=== PATIENT | female | born 1975 | race Caucasian/White ===

== ENCOUNTER → 2018-05-20 | Outpatient (CLI) | payer BC ==
--- NOTE | 2018-05-20 12:16 | CONS ---
CONSULTATION DATE OF SERVICE: 05/20/2018 A 43-year-old lady who has been evaluated in the [facility] for significant excessive daytime sleepiness. HISTORY OF PRESENT ILLNESS/SLEEP WAKE EVALUATION: Patient referred increasing symptoms of sleepiness for the last year. Her sleep schedule on weekdays from 10 p.m. until 5:30 a.m., on weekends from around 10 p.m. until 7 a.m. Sometimes she wakes up earlier and cannot fall asleep again. Usually the beginning of the night, she falls asleep well, although she has TV set in bedroom. She sleeps with her with occasional snoring and awakenings from sleep with dry mouth, panic attack, sweating, sleep talking and nocturia. Usually she wakes up around 2 times per night with 1 episode of nocturia. She is trying not to take any naps during the day because she referred that it is difficult to wake up from nap and she does not feel better if she is taking naps. Girard Sleepiness Scale increased to 12. PAST MEDICAL HISTORY: Positive for celiac disease, bleeding from uterus with low level of iron after that. Presently patient has a low level of iron, calcium and vitamin D. Pancreatic cyst under monitoring. PAST SURGICAL HISTORY: Uterus ablation 2007, tubal ligation, cholecystectomy, ERCP for sphincter of Oddi problems. MEDICATIONS: Calcium, iron and vitamin D. SOCIAL HISTORY: Negative for smoking. Alcohol consumption occasional. FAMILY HISTORY: Hypertension, hyperlipidemia, snoring, headaches, cancer, anemia. REVIEW OF SYSTEMS: Awakenings from sleep, tiredness and sleepiness during the day. PHYSICAL EXAM: lady without distress, BP 130/83, HR 82, RR 14, height 5, 4, weight 148.6, body mass index 25.4, temperature 98.2, oxygen saturation at room 100%. OROPHARYNX: Low position of soft palate, Mallampati 4, restriction of nasal breathing,. small nasal passages and nostrils. HEART: Very soft systolic murmur. Neck Supple, no JVD. Thyroid is not palpable. LUNGS Clear to percussion and to auscultation. Good air exchange. No wheezing or rhonchi. ABDOMEN Soft and nontender. Bowel sounds are present. No organomegaly appreciated. EXTREMITIES No clubbing or cyanosis. BRUSHER HAND Awake, alert, and oriented X3. Cranial nerves 2 to 7 intact. There is no fasciculation or atrophy. noted. No focal deficits observed. IMPRESSION: 1. Possible obstructive sleep apnea-hypopnea syndrome. 2. Patient presents with symptoms of excessive daytime sleepiness. Girard Sleepiness Scale is 12. 3. Positive history of possible hypnagogical hallucinations. Differential diagnosis should include hypersomnia and narcolepsy. 4. Celiac disease. 5. History of iron deficiency. 6. Differential diagnosis also should include periodic limb movements. 7. History of low level of calcium. 8. History of level of vitamin D. 9. Status post tubal ligation. 10.Status post uterus ablation. 11.Status post ERCP. 12.History of pancreatic cyst, they are monitoring in [facility]. PLAN: 1. Home sleep apnea test. 2. If home sleep apnea test will be negative for abnormalities of respiration, polysomnogram with the following multiple sleep latency test for objective evaluation of patient's symptoms of excessive daytime sleepiness and also to check for possible periodic limb movements. 3. Sleep hygiene with regular time in bed for at least 8 hours. 4. No driving if feeling sleepiness. Thank you very much for referring this patient for consultation. Sincerely, Harman Monsalve MD, PhD, FAASM Diplomat of [place] [employer] [place] [employer] [facility] MMODL / IJN: [id number] /
== END | disposition home or self-care (01) ==
LOC: SLEEP 10:24
PROVIDERS: ATTEND Internal Medicine
DX: G47.10 Hypersomnia, unspecified (principal); K90.0 Celiac disease; Z86.39 Personal history of other endocrine, nutritional and metabolic disease; Z87.19 Personal history of other diseases of the digestive system; Z90.49 Acquired absence of other specified parts of digestive tract; Z98.51 Tubal ligation status; Z98.890 Other specified postprocedural states
CPT/HCPCS: 99211

== ENCOUNTER → 2018-09-27 | Outpatient (CLI) | payer BC ==
--- NOTE | 2018-09-28 11:41 | MM ---
Reason for exam: additional evaluation requested from prior study. Physical Findings: Nurse did not find any significant physical abnormalities on exam. MG 3D Diag Mammo W/Cad LETHA Bilateral CC and MLO view(s) were taken. Prior study comparison: April 21, 2016, mammogram. The breast tissue is heterogeneously dense. This may lower the sensitivity of mammography. There is no discrete abnormality left subareolar. Focal asymmetry upper right MLO view, changing from prior. Reported by patient: positive thermogram upper right MLO and left periareolar. This finding is changed when compared with previous exams. These results were verbally communicated with the patient and result sheet given to the patient on 09/27/18. ASSESSMENT: Incomplete: need additional imaging evaluation, BI-RAD 0 RECOMMENDATION: Ultrasound of both breasts.
--- NOTE | 2018-09-28 11:46 | USB ---
Reason for exam: additional evaluation requested from abnormal screening. US Breast Limited BILAT Right complete breast ultrasound includes all four quadrants, the retroareolar region and axilla. Finding demonstrates a 0.6 x 0.3 x 0.2cm oval, complex cystic lesion at 8 o'clock, a 0.4 x 0.3 x 0.3cm oval, cystic lesion at 8 o'clock, a 1.0 x 0.6 x 0.3cm oval, cystic complex lesion at 9 o'clock irregular live, interval echoes for which a biopsy is recommended and a 0.4 x 0.4 x 0.4cm oval, cystic cluster at the posterior nipple. Left limited breast ultrasound including focal area of concern, retroareolar and axilla demonstrates no cystic or solid lesion seen. Non biopsied areas should have follow up ultrasound in 6 months. These results were verbally communicated with the patient and result sheet given to the patient on 09/27/18. ASSESSMENT: Suspicious, BI-RAD 4 RECOMMENDATION: Ultrasound core biopsy of the right breast. (9 o'clock right breast) Called Dr. Childers with mammographic findings and has scheduled an appointment for the patient for 10/18/18 at 9:[address] Sears. Biopsy scheduled for 10/11/18 at 12:20. PRELIMINARY REPORT CALLED AND FAXED TO DR. SEARS ON 09/28/18.
== END ==
LOC: RADMAMWWP 06:45
PROVIDERS: ATTEND Obstetrics & Gynecology
DX: R92.8 Other abnormal and inconclusive findings on diagnostic imaging of breast (principal)
CPT/HCPCS: 77062; 77066

== ENCOUNTER → 2018-10-11 | Day surgery (SDC) | payer BC ==
[~2018-10-11] MED LIST: ALPRAZolam 0.5 MG TAB PO ONE
[2018-10-11 13:25] VITALS: RESP 16; BMI 25.7
[2018-10-11 15:10] VITALS: BP 108/71; PULSE 60; TEMP 98
--- NOTE | 2018-10-11 15:57 | USB ---
EXAMINATION TYPE: US breast aspiration single RT DATE OF EXAM: 10/11/2018 COMPARISON: Ultrasound dated 09/27/2018 CLINICAL HISTORY: R92.8 ABN MAMMO. PROCEDURE: The procedure of ultrasound guided core biopsy was explained to the patient. Benefits, alternatives, and risks were discussed. An informed consent was then obtained. Preprocedural timeout was performed. Preprocedural scanning demonstrates possible continuity with an adjacent vein. Therefore this could represent superficial thrombophlebitis however this was not definitely connected to the vein and therefore aspiration performed. The patient was placed in supine positioning for imaging and for the procedure. The overlying skin was prepped and draped in usual sterile fashion. 10 cc of 1% lidocaine was used as anesthetic into the skin and subcutaneous tissue the elongated mass at the 9:00 position within the right breast measuring up to 9 mm. Under ultrasound guidance, an 18-gauge spinal needle was used to perform fine- needle aspiration. Following this, a ribbon-shaped biopsy marker was left at the site of collapse of the aspirated cystic mass. The patient tolerated the procedure well without any immediate complication. The patient was kept in the radiology department for short stay after the procedure and then discharged home in stable condition. Postprocedure mammogram demonstrates appropriate biopsy marker placement. IMPRESSION: Successful, uncomplicated ultrasound guided aspiration of a 9:00 elongated hypoechoic mass. This questionably could represent a hemorrhagic/inflammatory cyst or sequela of thrombophlebitis, full pathology results to follow. Assess for cystic remnant on fine-needle aspiration pathology report. Pathology Results: Benign RIGHT BREAST, 9:00, ASPIRATE: Scattered clusters of bland apocrine lining cells consistent with a benign apocrine cyst. Limited sample. Recommendation Follow up ultrasound of the right breast in 6 months. MTDD
--- NOTE | 2018-10-12 08:38 | MM ---
Reason for exam: additional evaluation requested from abnormal screening. Last mammogram was performed less than 1 month ago. MG Diagnostic Mammo RT Wo CAD CC and MLO view(s) were taken of the right breast. Prior study comparison: September 27, 2018, bilateral MG 3d diag mammo w/cad LETHA. April 21, 2016, mammogram. ASSESSMENT: Post procedure mammogram for marker placement RECOMMENDATION: Ultrasound of the right breast in 6 months. PENDING PATHOLOGY RESULTS.
== END ==
LOC: RADUSWWP 13:05
PROVIDERS: ATTEND Student in an Organized Health Care Education/Training Program
DX: N60.01 Solitary cyst of right breast (principal); R92.8 Other abnormal and inconclusive findings on diagnostic imaging of breast
CPT/HCPCS: 88305; 77065; 76942; 19000; A4648; J2001

== ENCOUNTER → 2021-05-08 | Outpatient (CLI) | payer BC ==
--- NOTE | 2021-05-08 08:48 | BD ---
EXAMINATION TYPE: Axial Bone Density DATE OF EXAM: 05/08/2021 COMPARISON: NONE CLINICAL HISTORY: Height: 64 Weight: 157.5 FRAX RISK QUESTIONS: Alcohol (3 or more units per day): no Family History (Parent hip fracture): no Glucocorticoids (More than 3mos): no (Ex: prednisone, prednisolone, methylprednisolone, dexamethasone, and hydrocortisone). History of Fracture in Adulthood: yes Secondary Osteoporosis: 1. Type 1 Diabetes: no 2. Hyperthyroidism: no 3. Menopause before 45: yes 4. Malnutrition: yes 5. Chronic liver disease: no Rheumatoid Arthritis: no Current Tobacco Use: no RISK FACTORS HISTORY OF: Surgery to Spine/Hip(right/left)/Wrist (right/left): no Family History of Osteoporosis: yes Active: yes Diet low in dairy products/other sources of calcium: yes Postmenopausal woman: yes Lost more than 2 inches in height since high school: no MEDICATIONS: none Additional History: EXAM MEASUREMENTS: Bone mineral densitometry was performed using the [employer] System. Bone mineral density as measured about the Lumbar spine is: ----- L1-L4(G/cm2): 1.014 T Score Values are as follows: ----- L2: -2.1 ----- L3: -0.8 ----- L4: -1.7 ----- L1-L4: -1.4 Bone mineral density : baseline Bone mineral density about the R hip (g/cm2): 0.959 Bone mineral density about the L hip (g/cm2): 0.909 T Score values are as follows: -----R Neck: -0.6 -----L Neck: -0.9 -----R Total: -0.6 -----L Total: -1.1 Bone mineral density : baseline IMPRESSION: Osteopenia NOTE: T-SCORE=SD OF THE YOUNG ADULT MEAN.
== END | disposition home or self-care (01) ==
LOC: RADBDWWP 07:19
PROVIDERS: ATTEND Obstetrics & Gynecology
DX: Z12.31 Encounter for screening mammogram for malignant neoplasm of breast (principal); M85.88 Other specified disorders of bone density and structure, other site
CPT/HCPCS: 77067; 77080

== ENCOUNTER → 2021-07-09 | Outpatient (CLI) | payer BC ==
[2021-07-09 10:27] LABS: Basophils % (A) 1 %; Eosinophils # (A) 0.4 k/uL (0-0.7); Eosinophils % (A) 6 %; Lymphocytes # (A) 1.3 k/uL (1.0-4.8); Lymphocytes % (A) 19 %; MCHC 33.5 g/dL (31.0-37.0); MCV 92.6 fL (80.0-100.0); Mean Platelet Volume 6.9; Monocytes # (A) 0.4 k/uL (0-1.0); Monocytes % (A) 6 %; Neutrophils # (A) 4.4 k/uL (1.3-7.7); Neutrophils % (A) 66 %; Platelet Count 231 k/uL (150-450); RBC 4.53 m/uL (3.80-5.40); RDW 11.8 % (11.5-15.5); WBC 6.7 k/uL (3.8-10.6)
[2021-07-09 10:41] LABS: ALT 23 U/L (4-34); AST 29 U/L (14-36); African American GFR (CKD) >90 (>60 ml/min/1.73 sqM); Albumin 4.1 g/dL (3.5-5.0); Alkaline Phosphatase 53 U/L (38-126); Anion Gap 5 mmol/L; Blood Urea Nitrogen 18 mg/dL (7-17); C Reactive Protein <0.5 mg/dL (<1.0); Calcium 9.3 mg/dL (8.4-10.2); Carbon Dioxide 27 mmol/L (22-30); Chloride 104 mmol/L (98-107); Glucose 85 mg/dL (74-99); Non-African American GFR(CKD) >90 (>60 ml/min/1.73 sqM); Potassium 4.3 mmol/L (3.5-5.1); Sodium 136 mmol/L (137-145); Total Bilirubin 0.6 mg/dL (0.2-1.3); Total Protein 7.1 g/dL (6.3-8.2)
[2021-07-09 14:56] LABS: Thyroid Peroxidase Antibodies 16.6 U/mL (0.0-33.0)
== END | disposition home or self-care (01) ==
LOC: LABT 09:05
PROVIDERS: ATTEND Physical Medicine & Rehabilitation
DX: K90.0 Celiac disease (principal); R19.7 Diarrhea, unspecified; M25.50 Pain in unspecified joint; E55.9 Vitamin D deficiency, unspecified; D51.3 Other dietary vitamin B12 deficiency anemia; D64.9 Anemia, unspecified; N95.8 Other specified menopausal and perimenopausal disorders
CPT/HCPCS: 80053; 82607; 82642; 82746; 83036; 83735; 84140; 84432; 84439; 84443; 84481; 85025; 86140; 86376

== ENCOUNTER → 2023-04-28 | Outpatient (CLI) | payer BC ==
--- NOTE | 2023-04-28 09:57 | MM ---
Reason for Exam: Clinical finding. Last mammogram was performed 2 year(s) and 0 month(s) ago. Patient History: Menarche at age 13. First Full-Term at age 22. Perimenopausal. 10/11/2018, Benign Cyst Aspiration on the right side. Maternal grandmother had breast cancer, age 50. Risk Values: Irene 5 year model risk: 0.8%. NCI Lifetime model risk: 8.3%. Prior Study Comparison: 09/27/2018 Bilateral Diagnostic Mammogram, [facility]. 09/27/2018 Bilateral Diagnostic Ultrasound, [facility]. 10/11/2018 Right Diagnostic Mammogram, [facility]. 05/08/2021 Bilateral Screening Mammogram, [facility]. Tissue Density: The breast tissue is heterogeneously dense. This may lower the sensitivity of mammography. Findings: Analyzed By CAD. Centrally located asymmetric density left CC view does not persist on spot compression. Asymmetric density far posterior lateral left CC view also disperses on XCCL view. No significant change from prior exams. Overall Assessment: Incomplete: need additional imaging evaluation, BI-RAD 0 Management: Diagnostic Breast Ultrasound of the left breast. Subareolar and periareolar for nipple discharge. Electronically signed and approved by: Oziel Steele M.D. Radiologist
--- NOTE | 2023-04-28 10:09 | USB ---
Reason for Exam: Clinical finding. Patient History: Menarche at age 13. First Full-Term at age 22. Perimenopausal. 10/11/2018, Benign Cyst Aspiration on the right side. Maternal grandmother had breast cancer, age 50. Risk Values: Irene 5 year model risk: 0.8%. NCI Lifetime model risk: 8.3%. Technique: Method: Targeted. Prior Study Comparison: 09/27/2018 Bilateral Diagnostic Mammogram, [facility]. 10/11/2018 Right Diagnostic Mammogram, [facility]. 05/08/2021 Bilateral Screening Mammogram, [facility]. Findings: The periareolar of the left breast, the axilla of the left breast and the retroareolar of the left breast were scanned. Targeted ultrasound subareolar and periareolar region as well as the axilla. Some minimal duct ectasia is noted. No solid or cystic mass or axillary adenopathy. Overall Assessment: Benign, BI-RAD 2 Management: Screening Mammogram of both breasts in 1 year. Further clinical management of patient's benign green/yellow nipple discharge. Suspicious discharge that would warrant further evaluation includes clear/bloody spontaneous discharge localized to a single pore on the nipple. A clinical breast exam by your physician is recommended on an annual basis and results should be correlated with mammographic findings. This exam should not preclude additional follow-up of suspicious palpable abnormalities. Results were given to the patient verbally at the time of exam. Electronically signed and approved by: Oziel Steele M.D. Radiologist
== END | disposition home or self-care (01) ==
LOC: RADMAMWWP 08:59
PROVIDERS: ATTEND Obstetrics & Gynecology
DX: N64.52 Nipple discharge (principal); R92.333 Mammographic heterogeneous density, bilateral breasts; Z80.3 Family history of malignant neoplasm of breast
CPT/HCPCS: 77062; 77066

== ENCOUNTER → 2023-05-15 | Outpatient (CLI) | payer BC ==
--- NOTE | 2023-05-17 12:13 | BD ---
EXAMINATION TYPE: Axial Bone Density DATE OF EXAM: 05/15/2023 CLINICAL HISTORY: 48 years old Female. ICD-10 CODE: M85.88 OSTEOPENIA : [id number] Height: 64 Weight: 155 FRAX RISK QUESTIONS: Alcohol (3 or more units per day): no Family History (Parent hip fracture): no Glucocorticoids (More than 3mos): no (Ex: prednisone, prednisolone, methylprednisolone, dexamethasone, and hydrocortisone). History of Fracture in Adulthood: yes Secondary Osteoporosis: 1. Type 1 Diabetes: no 2. Hyperthyroidism: no 3. Menopause before 45: yes 4. Malnutrition: yes 5. Chronic liver disease: yes Rheumatoid Arthritis: no Current Tobacco Use: no RISK FACTORS HISTORY OF: Surgery to Spine/Hip(right/left)/Wrist (right/left): no MEDICATIONS: Additional History: EXAM MEASUREMENTS: Bone mineral densitometry was performed using the [employer] System. Bone mineral density as measured about the Lumbar spine is: ----- L1-L4(G/cm2): 1.037 T Score Values are as follows: ----- L1: -1.5 ----- L2: -1.6 ----- L3: -0.8 ----- L4: -1.1 ----- L1-L4: -1.2 Z Score Values are as follows: ----- L1: -1.4 ----- L2: -1.5 ----- L3: -0.7 ----- L4: -1.0 ----- L1-L4: -1.1 Bone mineral density has: increased 2.3 % since study of: 2020 Bone mineral density about the R hip (g/cm2): 0.924 Bone mineral density about the L hip (g/cm2): 0.894 T Score values are as follows: -----R Neck: -0.6 -----L Neck: -1.0 -----R Total: -0.7 -----L Total: -0.9 Z Score values are as follows: -----R Neck: 0.0 -----L Neck: -0.4 -----R Total: -0.4 -----L Total: -0.6 Bone mineral density has: increased 0.3 % since study of: 2020 FRAX%s: The graph provided illustrates a 6.6% chance for a major osteoporotic fx and a 0.4% chance fo r the hips probability for fx in 10 years time. IMPRESSION: Osteopenia (T Score between -2.5 and -1). There is slightly increased risk of fracture and the patient may be considered for treatment. Re-Screen 2-5 years. NOTE: T-SCORE=SD OF THE YOUNG ADULT MEAN.
== END | disposition home or self-care (01) ==
LOC: RADBDWWP 15:02
PROVIDERS: ATTEND Obstetrics & Gynecology
DX: M85.88 Other specified disorders of bone density and structure, other site (principal)
CPT/HCPCS: 77080

== ENCOUNTER → 2023-06-05 | Outpatient (CLI) | payer BC ==
[2023-06-05 13:34] VITALS: BP 138/92; PULSE 76; RESP 16; TEMP 98.1
--- NOTE | 2023-06-05 14:09 | P.GSHP ---
History of Present Illness H&P Date: 06/05/23 Chief Complaint: nipple discharge Karina is a 48 year old female seen in consultation for Dr. Tejeda with nipple discharge. She had a bilateral mammogram on 04-28-23 and a left breast ultrasound which were BIRAD 2. She is complaining of bilateral nipple discharge which is yellow/green in nature. She has not noted any blood in the discharge. The drainage is spontaneous, the left is worse than the right. She is not had any change in medications no change in diet. She is not complaining of breast pain and no masses. She has not had a period since 2007 she had a NOVASURE and tubes tied. There is nothing that she has identified that makes the discharge better or worse. She is not complaining of any trauma or infection in the breast. She had a right breast biopsy about 4 years ago and told a hematoma. In April she had FSH, LH, estradiol, and prolactin levels checked and was told all of these were normal. Caffiene: 2 cups/day nicotine: none BCP: used them for about 5 years in remote past chocolate: occasional hormones: none soy: none Family History: maternal grandmother: breast cancer father: renal cancer paternal grandfather: colon cancer Hormonal History: menarche: 13 M1, breast fed: yes, age at first : 22 ablation at 33, no periods since than Surgical history: Cholecystectomy Tubal ligation/ablation ERCP Left high tibial osteotomy Medical history: none celiac disease ? thyroid disease Social History: nicotine: none alcohol: wine occasional drugs: none - Constitutional Constitutional: Reports sweats - EENT Eyes: bilateral blurred vision, denies pain Ears: bilateral: tinnitus Ears, nose, mouth and throat: Denies headache, Denies sore throat - Breasts Breasts: bilateral: as per HPI - Cardiovascular Cardiovascular: Denies chest pain, Denies shortness of breath - Respiratory Respiratory: Denies cough, Denies 7 - Gastrointestinal Gastrointestinal: Reports as per HPI, Reports diarrhea, Denies abdominal pain, Denies nausea, Denies vomiting - Genitourinary (Female) Genitourinary: Denies dysuria, Denies hematuria - Menstruation Menstruation: Reports as per HPI - Musculoskeletal Musculoskeletal: Reports myalgias - Integumentary Comment: better with cutting glutin out Integumentary: Denies pruritus, Denies rash - Neurological Neurological: Reports numbness, Denies weakness - Psychiatric Psychiatric: Reports anxiety, Reports depression - Endocrine Endocrine: Reports fatigue - Hematologic/Lymphatic Comment: none - Allergic/Immunologic Allergic/Immunologic: Reports seasonal allergies Past Medical History Additional Past Medical History / Comment(s): Hx of hiatal hernia and pancreatitis. Celiac disease History of Any Multi-Drug Resistant Organisms: None Reported Past Surgical History: Cholecystectomy, Tubal Ligation Additional Past Surgical History / Comment(s): uterine ablation, ERCP fo pancreatitis Past Anesthesia/Blood Transfusion Reactions: Previous Problems w/ Anesthesia Additional Past Anesthesia/Blood Transfusion Reaction / Comment(s): trouble to "go under" Past Psychological History: Anxiety Additional Psychological History / Comment(s): Hx of anxiety Smoking Status: Never smoker Past Alcohol Use History: Rare Past Drug Use History: None Reported Medications and Allergies Home Medications Medication Instructions Recorded Confirmed Type Cholecalciferol (Vitamin D3) 2,000 unit PO DAILY 10/01/18 06/05/23 History [Vitamin D3] Fexofenadine HCl [Amy Allergy] 60 mg PO DAILY 06/05/23 06/05/23 History Allergies Allergy/AdvReac Type Severity Reaction Status Date / Time ciprofloxacin [From Cipro] Allergy Unknown Verified 06/05/23 13:06 gluten Allergy Nausea & Verified 06/05/23 13:06 Vomiting & Diarrhea Iodinated Contrast Media Allergy Unknown Verified 06/05/23 13:06 [Iodinated Contrast Media - IV Dye] Sulfa (Sulfonamide Allergy Rash/Hives Verified 06/05/23 13:06 Antibiotics) Surgical - Exam Vital Signs Temp Pulse Resp BP Pulse Ox 98.1 F 76 16 138/92 100 06/05/23 13:07 06/05/23 13:07 06/05/23 13:07 06/05/23 13:07 06/05/23 13:07 - General moderate distress - Eyes normal ocular movement - Neck trachea midline - Respiratory normal respiratory effort, clear to auscultation - Cardiovascular Heart Sounds: normal: S1, S2 - Integumentary normal turgor - Neurologic no disoriented, no combative - Musculoskeletal normal gait - Psychiatric oriented to time, oriented to person, oriented to place, speech is normal, memory intact Breast Exam: BRA: 34B Inspection: bilateral grade 2 ptosis Right breast: Multi positional exam fibrocystic changes, dense breast, no dominant masses or nodules of concern, no nipple discharge on today's exam Right axilla: No adenopathy of concern Left breast: Multi positional exam fibrocystic changes, dense breast, no dominant masses or nodules of concern, no nipple discharge on today's exam Left axilla: No adenopathy of concern Results Bilateral mammogram and left breast ultrasound reviewed Assessment and Plan Assessment: Impression: Bilateral spontaneous nipple discharge not noted on today's exam Fibrocystic breast changes Celiac disease Myalgias Questionable hypothyroidism Laboratory studies do not indicate menopausal status Plan: On today's examination there is nothing radiographically or on physical exam which would warrant interventional biopsy Consider evaluatio for autoimmune disease bilateral mammogram in 1 year with appointment at that time CC: Dr. Tejeda
== END ==
LOC: WWCWWP 12:55
PROVIDERS: ATTEND Surgery
DX: N60.12 Diffuse cystic mastopathy of left breast (principal); K90.0 Celiac disease; M79.10 Myalgia, unspecified site; F41.9 Anxiety disorder, unspecified; Z88.1 Allergy status to other antibiotic agents; Z91.018 Allergy to other foods; Z91.041 Radiographic dye allergy status; Z88.2 Allergy status to sulfonamides; Z80.3 Family history of malignant neoplasm of breast; Z98.51 Tubal ligation status